=== PATIENT | female | born 1940 | race Caucasian/White ===

== ENCOUNTER 2022-01-21 10:24 | Observation (INO) | payer MEDICARE ==
[~2022-01-21] VITALS: Ht 167.6 cm; Wt 73.0 kg
--- NOTE | 2022-01-21 10:30 | NUR ---
PT TO ROOM 2 VIA WC ABLE TO TRANSFER TO STRETCHER W/MIN ASSIST.
[2022-01-21 11:28] LABS: HEMATOCRIT 35.2 % (37.0-47.0); HEMOGLOBIN 11.3 g/dl (12.0-16.0); IMMATURE GRANULOCYTES 0.5 % (0.0-5.0); MEAN CELL VOLUME 91.7 fL CALC (80.0-100.0); MEAN CORPUSCULAR HGB 29.4 pG CALC (26.0-32.0); MEAN CORPUSCULAR HGB CONC 32.1 g/dL CAL (32.0-36.0); NEUT# 5.43 thou/uL (2.00-7.15); RED BLOOD COUNT 3.84 mill/uL (4.20-5.60); RED CELL DISTRI WIDTH 14.3 % (11.5-15.5)
--- NOTE | 2022-01-21 11:30 | NUR ---
PT ADVISED OF WAIT TIME FOR TEST RESULTS. COMFORT MEASURES PROVIDED. HALEY AT BEDSIDE.
[2022-01-21 11:42] LABS: ALKALINE PHOSPHATASE 126 u/l (38-126); ANION GAP 9 (6-22 (CALC)); BILIRUBIN, TOTAL 0.4 mg/dL (0.0-1.4); BUN 7 mg/dL (8-23); BUN/CREATININE RATIO 10 (12-20 (CALC)); CARBON DIOXIDE 28 mmol/l (22-30); CHLORIDE 97 mmol/l (95-108); CREATININE 0.7 mg/dL (0.5-1.0); GFR > 60 ML/MIN (>=60 (CALC)); GFR FOR AFR.AMER. > 60 ML/MIN (>=60 (CALC)); POTASSIUM 4.1 mmol/l (3.5-5.1); SGOT/AST 30 u/l (9-36); SODIUM 130 mmol/l (137-146); TOTAL PROTEIN 6.7 g/dL (6.3-8.2)
[2022-01-21] MEDS ORDERED: TRAMADOL HCL50 MG PO (12:31)
[2022-01-21] MEDS ORDERED: TEGRETOL200 MG PO (12:31)
[2022-01-21] MEDS ORDERED: CIPROFLOXACN500 MG PO (12:33)
--- NOTE | 2022-01-21 12:34 | NUR ---
PT AWARE OF PENDING ADMIT. IV ABT INFUSING O2 2L/M VIA NC. SATS 97
--- NOTE | 2022-01-21 13:30 | NUR ---
PT ASSISTED TO BSC. VOIDED WITHOUT DIFFICULTY. RETURNED TO BED TOLERATED ACTIVITY WELL.
--- NOTE | 2022-01-21 14:36 | NUR ---
REPORT CALLED TO DELTA VELASCO, ON MEDSURG. ADVISED OF ALL EVENTS ATTACHMENT MEDS. PT TO MEDSURG VIA WC ON TELEMETRY. IV SITE HEALTHY. O2 2L/M VIA NC.
[2022-01-21 15:00] VITALS: BP 149/56
--- NOTE | 2022-01-21 15:23 | NUR ---
REPORT RECEIVED FROM HAN IN ED, PT ARRIVED ON UNIT TRANSPORTED VIA W/C @ 0775, ALERT AND ORIENTED TO PERSON AND PLACE BUT WHEN CUED AND PROMPTED SHE COULD GIVE PARTIAL DATE, DENIES PAIN/DISCOMFORT, GRUMPY AT THIS TIME STATING LOUDLY SHE DOES NOT HAVE COVID AND SHE WANTS TO GO HOME NOW, WAS REFUSING REMDESIVIR BUT WHEN INFORMED IT TREATS PNEUMONIA SHE CONSENTED TO TAKE IT. SHE IS ANXIOUS AT THIS TIME AND ADAMANT SHE DOES NOT HAVE COVID AND SHE WILL NOT TAKE A COVID VACCINE EVEN THOUGH SHE WAS NOT OFFERED ONE. ORIENTED TO ROOM AND CALL LAND, BED LOCKED IN LOWEST POSITION AND CALL LIGHT IN REACH.
[2022-01-21 17:03] LABS: URINE BILIRUBIN - DIPSTICK NEGATIVE (NEGATIVE); URINE BLOOD DIPSTICK NEGATIVE (NEGATIVE); URINE COLOR YELLOW; URINE GLUCOSE - DIPSTICK NEGATIVE (NEGATIVE); URINE KETONE NEGATIVE (NEGATIVE); URINE LEUK ESTERASE NEGATIVE (NEGATIVE); URINE NITRITE - DIPSTICK POSITIVE (Negative); URINE PROTEIN - DIPSTICK NEGATIVE (NEG-TRACE); URINE SPECIFIC GRAVITY <=1.005; URINE UROBILINOGEN - DIPSTICK 0.2 E.U./dL (0.2)
[2022-01-21 17:15] LABS: URINE SQUAMOUS EPITHELIAL CELL RARE EPI/hpf (0-FEW)
[2022-01-21 19:00] VITALS: BP 150/56
--- NOTE | 2022-01-21 19:46 | NUR ---
RECEIVED REPORT FROM NURSE KRISTA, PATIENT IN BEDSIDE COMODE, BREATHING UNLABORED, PATIENT IS HARD OF HEARING. ASSISTED BACK IN BED.CALL LIGHT AT REACH.
--- NOTE | 2022-01-21 20:30 | NUR ---
PATIENT ALERT TO SELF AND PLACE, CORRECT MONTH INCORRECT DAY AND YEAR, PATIENT STATED NON PRODUCTIVE COUGH, HOOKED ON TELEMETRY SR WITH PVC 99, IRREGULAR HEART RATE, SKIN INTACT, ACTIVE BOWEL SOUNDS LBM 01/21, CALL LIGHT AT REACH.
[2022-01-22] VITALS: BP 150/60
--- NOTE | 2022-01-22 | NUR ---
PATIENT RESTING IN BED AT THIS TIME, BED ALARM,BABY MONITOR IN PLACE.BREATGING UNLABORED, CALL LIGHT AT [facility].
--- NOTE | 2022-01-22 04:50 | NUR ---
PATIENT ASSISTED TO BEDSIDE COMMODE, BREATHING UNLABORED, DENIES PAIN CALL LIGHT AT REACH
[2022-01-22 05:00] VITALS: BP 162/59
[2022-01-22 05:33] LABS: HEMATOCRIT 33.7 % (37.0-47.0); HEMOGLOBIN 11.1 g/dl (12.0-16.0); IMMATURE GRANULOCYTES 0.5 % (0.0-5.0); MEAN CELL VOLUME 90.8 fL CALC (80.0-100.0); MEAN CORPUSCULAR HGB 29.9 pG CALC (26.0-32.0); MEAN CORPUSCULAR HGB CONC 32.9 g/dL CAL (32.0-36.0); NEUT# 3.7 thou/uL (2.00-7.15); RED BLOOD COUNT 3.71 mill/uL (4.20-5.60); RED CELL DISTRI WIDTH 14.4 % (11.5-15.5)
[2022-01-22 06:28] LABS: ALBUMIN 2.5 g/dL (3.2-5.0); ALKALINE PHOSPHATASE 115 u/l (38-126); ANION GAP 10 (6-22 (CALC)); BUN 7 mg/dL (8-23); BUN/CREATININE RATIO 12 (12-20 (CALC)); CARBON DIOXIDE 23 mmol/l (22-30); CHLORIDE 103 mmol/l (95-108); CREATININE 0.6 mg/dL (0.5-1.0); GFR > 60 ML/MIN (>=60 (CALC)); GFR FOR AFR.AMER. > 60 ML/MIN (>=60 (CALC)); POTASSIUM 3.9 mmol/l (3.5-5.1); SGOT/AST 30 u/l (9-36); SODIUM 131 mmol/l (137-146); TOTAL PROTEIN 5.7 g/dL (6.3-8.2)
[2022-01-22 06:32] LABS: BILIRUBIN, TOTAL 0.2 mg/dL (0.0-1.4)
[2022-01-22 06:41] LABS: C-REACTIVE PROTEIN 17.8 mg/dL (0-0.9)
[2022-01-22 07:15] VITALS: BP 158/60
--- NOTE | 2022-01-22 07:15 | NUR ---
PATIENT LAYING IN BED AT THIS TIME. ALERT TO NAME AND PLACE PATIENT BEING MONITORED BY BABY MONITOR (CAMERA). WHEEZES NOTED IN LUNG FILEDS AT THIS TIME. TELE MONITOR IN PLACE AND BEING MONITORED BY ED. SIDERAILS ARE UP X 2 CALL LIGHT WIHTIN REACH. 02 ON AT 2L AND SPO2 IS 93%. WILL CONTINUE TO MONITOR.
--- NOTE | 2022-01-22 08:55 | NUR ---
Patient was screened for intervention and no needs are identified at this time
[2022-01-22 10:20] VITALS: BP 145/51
--- NOTE | 2022-01-22 11:32 | NUR ---
PATIENT RESTING IN BED AT THIS TIME. DENIES ANY PAIN, SIDERAILS ARE UP CALL LIGHT WIHTIN REACH. PATIENT AQUILINO ANY NEEDS REMAINS ON CAMERA
[2022-01-22 15:10] VITALS: BP 160/69
--- NOTE | 2022-01-22 15:47 | NUR ---
PATIENT RESTING IN BED DENIES ANY PAIN OR NEED AT THIS TIME. TELE MONITOR IN PLACE AND BEING MONITORED BY ED. SIDERAILS ARE UP CALL LIGHT IS WITHIN REACH. PATIENT IS ON ROOM AIR AND SPO2 IS 94%. WILL CONTINUE TO MONITOR.
[2022-01-22 20:03] VITALS: BP 171/52
--- NOTE | 2022-01-22 20:30 | NUR ---
PATIENT RESTING IN BED AT THIS TIME-AWAKE ALERT AND ORIENTEDX3. PATIENT O2 SAT IS 92% ON ROOM AIR. TELE MONITOR IN PLACE WITH LAST READING BEING ST-100 PVC'S WITH IVCD. STATES THAT SHE IS FEELING BETTER. ON ISOLATION FOR COVID AND FLU A SALINE LOCK TO LEFT FOREARM INTACT AND HEALTHY AT THIS TIME. ENCOURAGED USE OF IS Q1H WHILE AWAKE IN REPS OF 10. ENCOURAGED PRONING IF POSSIBLE. SAFETY PRECAUTIONS REINFORCED. CALL LIGHT IN REACH. WILL CONT TO MONITOR.
--- NOTE | 2022-01-22 22:01 | NUR ---
SPOKE WITH PATIENT DAUGHTER TAQUERIA WHO STATES THAT SHE WILL BE TAKING HER MOM WITH HER BACK TO [place] WHEN SHE IS DISCHARGED AND THAT SHE WILL BE STAYING WITH THEM UNTIL SHE IS ABLE TO STAY BY HERSELF IN HER OWN APT ON THEIR PROPERTY. WILL CONT TO MONITOR.
[2022-01-23] VITALS: BP 159/74
--- NOTE | 2022-01-23 01:27 | NUR ---
PATIENT RESTING IN BED-STATES THAT SHE CAN'T SLEEP-MEDICATED WITH TYLENOL 650MG PO FOR GENERALIZED ACHES AND WITH ROBITUSSIN AC FOR COUGH. TELE MONITOR IN PLACE. IV SITE TO LEFT FOREARM INTACT. SAFETY PRECATIONS REINFORCED. CALL LIGHT IN REACH. WILL CONT TO MONITOR.
[2022-01-23 04:00] VITALS: BP 149/65
--- NOTE | 2022-01-23 04:34 | NUR ---
PATIENT RESTING IN BED AT THIS TIME-NO COMPLAINTS AT THIS TIME. TELE MONITOR IN PLACE WITH LAST READING SR-68 PVC'S IVCD. SALINE LOCK TO LEFT FOREARM INTACT. SAFETY PRECAUTIONS REINFORCED. CALL LIGHT IN REACH. HECTOR CONT TO MONITOR.
[2022-01-23 05:54] LABS: HEMATOCRIT 34.2 % (37.0-47.0); HEMOGLOBIN 11.1 g/dl (12.0-16.0); IMMATURE GRANULOCYTES 0.3 % (0.0-5.0); MEAN CORPUSCULAR HGB 29.5 pG CALC (26.0-32.0); MEAN CORPUSCULAR HGB CONC 32.5 g/dL CAL (32.0-36.0); NEUT# 4.33 thou/uL (2.00-7.15); RED BLOOD COUNT 3.76 mill/uL (4.20-5.60); RED CELL DISTRI WIDTH 14.3 % (11.5-15.5)
[2022-01-23 06:26] LABS: ALBUMIN 2.5 g/dL (3.2-5.0); ALKALINE PHOSPHATASE 115 u/l (38-126); ANION GAP 10 (6-22 (CALC)); BUN 15 mg/dL (8-23); BUN/CREATININE RATIO 20 (12-20 (CALC)); C-REACTIVE PROTEIN 8.6 mg/dL (0-0.9); CARBON DIOXIDE 25 mmol/l (22-30); CHLORIDE 103 mmol/l (95-108); CREATININE 0.7 mg/dL (0.5-1.0); GFR > 60 ML/MIN (>=60 (CALC)); GFR FOR AFR.AMER. > 60 ML/MIN (>=60 (CALC)); POTASSIUM 4.1 mmol/l (3.5-5.1); SGOT/AST 32 u/l (9-36); SODIUM 134 mmol/l (137-146); TOTAL PROTEIN 5.6 g/dL (6.3-8.2)
[2022-01-23 06:27] LABS: BILIRUBIN, TOTAL 0.3 mg/dL (0.0-1.4)
--- NOTE | 2022-01-23 07:07 | NUR ---
REPORT FROM SREE SORENSON. ASSUMED PT CARE.
[2022-01-23 08:00] VITALS: BP 132/68
--- NOTE | 2022-01-23 11:38 | NUR ---
PHYSICIAN AT BEDSIDE.
[2022-01-23 11:44] VITALS: BP 142/69
--- NOTE | 2022-01-23 12:01 | NUR ---
MULTIPLE ATTEMPTS TO OBTAIN #20 IN AC FOR CTA WITHOUT SUCCESS. PHYSICIAN NOTIFIED.
--- NOTE | 2022-01-23 13:33 | NUR ---
6 MINUTE WALK TEST PERFORMED. PT SATS REMAINS 94% AND HIGHER ON RA. PT WALK LIMITED DUE TO ARTHRITIS. NOTIFIED F[facility] PATRICK.
[2022-01-23] MEDS ORDERED: ZPAK PO (14:16)
[2022-01-23] MEDS ORDERED: DEXAMETHASON6 MG PO (14:16)
[2022-01-23] MEDS ORDERED: TAM75CAP PO (14:16)
[2022-01-23] MEDS ORDERED: TESSALON PERLE100 MG PO (14:17)
[2022-01-23] MEDS ORDERED: ASPIRIN REGULA325 M1 PO (14:18)
[2022-01-23 14:54] VITALS: BP 101/43
--- NOTE | 2022-01-23 15:58 | NUR ---
IV site discontinued, cath intact. No edema , no redness, voices no discomfort.
--- NOTE | 2022-01-23 16:35 | NUR ---
Discharge instructions given. Patient verbalizes understanding of same. Discharged in stable condition via Wheelchair to Home with family. All belongings sent with pt.
== END 2022-01-23 16:35 | disposition home or self-care (01) ==
LOC: ED 10:24 → ED-I 12:30 → ED 12:43 → MS2 12:44
PROVIDERS: Family Medicine; Nurse Practitioner; ADMIT Hospitalist; ATTEND Hospitalist
PROC: XW033E5 Introduction of Remdesivir Anti-infective into Peripheral Vein, Percutaneous Approach, New Technology Group 5 (ICD-10-PCS; principal; 2022-01-21)
DX: U07.1 COVID-19 (principal); J12.82 Pneumonia due to coronavirus disease 2019; J10.00 Influenza due to other identified influenza virus with unspecified type of pneumonia; R09.02 Hypoxemia; I10 Essential (primary) hypertension; F17.290 Nicotine dependence, other tobacco product, uncomplicated
CPT/HCPCS: G0378; J1650